=== PATIENT | female | born 1960 | race Caucasian/White ===

== ENCOUNTER → 2019-06-04 | Emergency (ER) | payer BC, SELFPAY | PROVIDERS: Family Provider Nurse Practitioner Family | DX: H57.11 Ocular pain, right eye (principal); Z53.21 Procedure and treatment not carried out due to patient leaving prior to being seen by health care provider | CPT/HCPCS: 99281 ==

== ENCOUNTER 2019-09-06 17:17 | Inpatient (IN) | payer MEDICAID, SELFPAY ==
[2019-09-06] VITALS (7 sets, daily range): BP systolic 123–182; BP diastolic 62–92; PULSE 66–145; RESP 16–22; TEMP 37; O2SAT 89–98; BMI 26.6
--- NOTE | 2019-09-06 17:19 | ED_ITS ---
Entered by Edmund Ayala, acting as scribe for Shiela Treadwell MD Documented by User: Shiela Treadwell MD 09/06/19 17:29 HPI - General Adult General: Chief complaint: Nausea/Vomiting/Diarrhea Stated complaint: N/V/D Time Seen by Provider: 09/06/19 17:25 History of Present Illness: HPI narrative: 58 yo female presents with nausea, vomiting and diarrhea. Pt states that she has bowel incontinence. Pt states that she has chronic diarrhea, but she normally doesn't vomit. Pt states that she feels dehydrated. MD complaint: N/V/D Onset (ago): day(s) (4) Radiation: non-radiation Severity: moderate Quality: aching Pain Consistency: intermittent Relieving factors: none Exacerbating factors: none Associated symptoms: Reports malaise, nausea and vomiting; Deny chest pain, dyspnea, headache(s) or rash Review of Systems Const: Reports: malaise Eyes: Denies: blurry vision or eye discomfort ENMT: Denies: throat pain or dental pain Card: Denies: chest pain Resp: Denies: shortness of breath GI: Reports: abdominal pain, nausea, vomiting and diarrhea : Denies: painful urination Musc: Denies: neck pain or back pain Skin/Breast: Denies: rash Neuro: Denies: headache Psych: Denies: depression Alfonso/Lymph: Denies: easy bruising All/Imm: Denies: hives PFSH ED PFSH: Medical History (Updated 09/06/19 @ 17:28 by Edmund Ayala) Hypertension Psoriatic arthritis Sciatica Surgical History (Updated 09/06/19 @ 17:28 by Edmund Ayala) H/O foot surgery History of cataract surgery History of tubal ligation Social History Smoking and tobacco status: current every day smoker Physical Exam Const: COMMON NORMALS: no apparent distress, oriented x3 and healthy appearing HENMT: COMMON NORMALS: normocephalic and head/scalp atraumatic HEAD & SCALP: normocephalic and atraumatic Eye: COMMON NORMALS: PERRL and EOMs intact bilaterally PUPIL: Yes PERRL Neck/C-Spine: COMMON NORMALS: full ROM and supple Chest: COMMONS NORMALS: inspection of chest normal and palpation of chest n ormal Resp: COMMON NORMALS: normal respiratory effort, no retractions, no use of accessory muscles and clear to auscultation bilaterally AUSCULTATION: clear to auscultation bilaterally Cardio: COMMON NORMALS: regular rate, regular rhythm and no murmurs RATE: regular rate RHYTHM: regular rhythm GI: COMMON NORMALS: soft to palpation and no masses AUSCULTATION: Yes absent bowel sounds PALPATION: Yes soft Extremity: COMMON NORMALS: normal to inspection and full ROM Neuro: COMMON NORMALS: oriented x3, moves all extremities and no focal motor deficits Psych: COMMON NORMALS: mental status grossly normal, thought process normal and cooperative THOUGHT PROCESS: normal thought process Skin: COMMON NORMALS: no rashes or lesions noted and no wounds GENERAL SKIN EXAM: no rashes or lesions noted Course Vital Signs: Vital signs: Vital Signs Temperature 98.6 F 09/06/19 17:20 Pulse Rate 73 09/06/19 19:13 Respiratory Rate 16 09/06/19 19:13 Blood Pressure 154/70 09/06/19 19:13 Pulse Oximetry 91 09/06/19 19:13 [facility] - General Adult Lab Data: Labs: Lab Results 09/06/19 09/06/19 Range/Units 17:57 17:57 WBC 8.9 (4.0-10.0) 10^3/ uL RBC 3.82 L (4.1-5.3) 10^6/u L Hgb 12.5 (11.5-15.3) g/dL Hct 37.7 (37.0-47.0) % MCV 98.7 (81-99) fL MCH 32.7 (28.0-34.0) pg MCHC 33.2 (30.0-36.0) g/dL RDW 14.8 (12.1-15.1) % Plt Count 338 (130-400) 10^3/c mm MPV 8.6 (7.4-10.4) fL Neut % (Auto) 79.0 % Lymph % (Auto) 14.9 % Warrick % (Auto) 5.6 % Eos % (Auto) 0.1 % Baso % (Auto) 0.1 % Neut # (Auto) 7.1 (1.8-7.7) 10^3/u L Lymph # (Auto) 1.3 (0.8-4.8) 10^3/u L Warrick # (Auto) 0.5 (0.2-0.9) 10^3/u L Eos # (Auto) 0.0 (0.0-0.8) 10^3/u L Baso # (Auto) 0.0 (0.0-0.1) 10^3/u L Nucleated RBC % (a uto) 0 % Nucleated RBCs # 0.0 /100WBC Sodium 139 (136-145) mmol/L Potassium 3.2 L (3.5-5.1) mmol/L Chloride 99 (98-107) mmol/L Carbon Dioxide 28 (22-29) mmol/L Anion Gap 15.2 (5-19) BUN 7 (6-20) mg/dL Creatinine 0.5 (0.5-0.9) mg/dL GFR Calculation 126.3 (90-130) mL/min Glucose 118 H (65-115) mg/dL Calcium 9.0 (8.5-10.5) mg/dL Total Bilirubin 0.5 (0.15-1.2) mg/dL AST 69 H (0-32) U/L ALT 63 H (0-33) U/L Alkaline Phosphata se 63 (35-105) IU/L Total Protein 5.9 L (6.6-8.7) g/dL Albumin 3.1 L (3.5-5.2) g/dL Globulin 2.8 (1.3-4.6) g/dL Lipase 20 (13-60) U/L Discharge Plan Discharge Prescriptions: No Action escitalopram oxalate [Lexapro] 20 mg tablet 20 mg PO QDAY RF: 0 trazodone 100 mg tablet 400 mg PO QDAY RF: 0 carvedilol [Coreg] 25 mg tablet 25 mg PO BID RF: 0 methotrexate sodium 10 mg tablet 10 mg PO Q12H RF: 0 Cosentyx Pen 150 mg/mL pen injector 150 mg SUBCUT .Weekly RF: 0 omeprazole 40 mg capsule,delayed release(DR/EC) 40 mg PO BID RF: 0 ondansetron HCl [Zofran] 4 mg tablet 4 mg PO Q8H PRN (Reason: nausea and vomiting) RF: 0 acetaminophen-codeine [Tylenol-Codeine #4] 300-60 mg tablet 1 tab PO .PM RF: 0 ibuprofen 200 mg tablet 800 mg PO .4-5 X Daily RF: 0 Coding Level of Care Code ED Medication Tech for Chg Fwd Exam Comprehensive Documented by User: Nicolas Healy DO 09/06/19 20:46 HPI - General Adult General: Chief complaint: Nausea/Vomiting/Diarrhea Stated complaint: N/V/D Time Seen by Provider: 09/06/19 17:25 PFSH ED PFSH: Medical History (Updated 09/06/19 @ 17:28 by Edmund Ayala) Hypertension Psoriatic arthritis Sciatica Surgical History (Updated 09/06/19 @ 17:28 by Edmund Ayala) H/O foot surgery History of cataract surgery History of tubal ligation Social History Smoking and tobacco status: current every day smoker Course Vital Signs: Vital signs: Vital Signs Temperature 98.6 F 09/06/19 17:20 Pulse Rate 73 09/06/19 19:13 Respiratory Rate 16 09/06/19 19:13 Blood Pressure 154/70 09/06/19 19:13 Pulse Oximetry 91 09/06/19 19:13 MDM - General Adult MDM Narrative: Medical decision making narrative: 58-year-old lady checked out to me by Dr. Wilson. She is experiencing intractable nausea vomiting and diarrhea. No leukocytosis. Her potassium is low. CT shows a early or partial distal small bowel obstruction, with significant enteritis surrounding. She will be observed for fluids, repeat imaging is necessary. Potassium repletion. Lab Data: Labs: Lab Results 09/06/19 09/06/19 Range/Units 17:57 17:57 WBC 8.9 (4.0-10.0) 10^3/ uL RBC 3.82 L (4.1-5.3) 10^6/u L Hgb 12.5 (11.5-15.3) g/dL Hct 37.7 (37.0-47.0) % MCV 98.7 (81-99) fL MCH 32.7 (28.0-34.0) pg MCHC 33.2 (30.0-36.0) g/dL RDW 14.8 (12.1-15.1) % Plt Count 338 (130-400) 10^3/c mm MPV 8.6 (7.4-10.4) fL Neut % (Auto) 79.0 % Lymph % (Auto) 14.9 % Warrick % (Auto) 5.6 % Eos % (Auto) 0.1 % Baso % (Auto) 0.1 % Neut # (Auto) 7.1 (1.8-7.7) 10^3/u L Lymph # (Auto) 1.3 (0.8-4.8) 10^3/u L Warrick # (Auto) 0.5 (0.2-0.9) 10^3/u L Eos # (Auto) 0.0 (0.0-0.8) 10^3/u L Baso # (Auto) 0.0 (0.0-0.1) 10^3/u L Nucleated RBC % (a uto) 0 % Nucleated RBCs # 0.0 /100WBC Sodium 139 (136-145) mmol/L Potassium 3.2 L (3.5-5.1) mmol/L Chloride 99 (98-107) mmol/L Carbon Dioxide 28 (22-29) mmol/L Anion Gap 15.2 (5-19) BUN 7 (6-20) mg/dL Creatinine 0.5 (0.5-0.9) mg/dL GFR Calculation 126.3 (90-130) mL/min Glucose 118 H (65-115) mg/dL Calcium 9.0 (8.5-10.5) mg/dL Total Bilirubin 0.5 (0.15-1.2) mg/dL AST 69 H (0-32) U/L ALT 63 H (0-33) U/L Alkaline Phosphata se 63 (35-105) IU/L Total Protein 5.9 L (6.6-8.7) g/dL Albumin 3.1 L (3.5-5.2) g/dL Globulin 2.8 (1.3-4.6) g/dL Lipase 20 (13-60) U/L Discharge Plan Discharge Prescriptions: No Action escitalopram oxalate [Lexapro] 20 mg tablet 20 mg PO QDAY RF: 0 trazodone 100 mg tablet 400 mg PO QDAY RF: 0 carvedilol [Coreg] 25 mg tablet 25 mg PO BID RF: 0 methotrexate sodium 10 mg tablet 10 mg PO Q12H RF: 0 Cosentyx Pen 150 mg/mL pen injector 150 mg SUBCUT .Weekly RF: 0 omeprazole 40 mg capsule,delayed release(DR/EC) 40 mg PO BID RF: 0 ondansetron HCl [Zofran] 4 mg tablet 4 mg PO Q8H PRN (Reason: nausea and vomiting) RF: 0 acetaminophen-codeine [Tylenol-Codeine #4] 300-60 mg tablet 1 tab PO .PM RF: 0 ibuprofen 200 mg tablet 800 mg PO .4-5 X Daily RF: 0 Coding Level of Care Code ED Medication Tech for Chg Fwd Exam Comprehensive
--- NOTE | 2019-09-06 17:25 | CTR_ITS ---
PROCEDURE INFORMATION: Exam: CT Abdomen And Pelvis With Contrast Exam date and time: 09/06/2019 6:04 PM Age: 58 years old Clinical indication: Nausea and vomiting; Prior surgery; Surgery date: 6+ months; Surgery type: Nerve stimulator; Additional info: Abdominal pain TECHNIQUE: Imaging protocol: Computed tomography of the abdomen and pelvis with intravenous contrast. Total DLP: 880.3 mGy-cm Radiation optimization: All CT scans at this facility use at least one of these dose optimization techniques: automated exposure control; mA and/or kV adjustment per patient size (includes targeted exams where dose is matched to clinical indication); or iterative reconstruction. Contrast material: OMNI 300; Contrast volume: 95 ml; Contrast route: IV; COMPARISON: CR Hip 2-3v LEFT wwo Pelv* [id number] 11/10/2017 12:48 PM FINDINGS: Lungs: There are centrilobular emphysematous changes in the bilateral lungs. There are noncalcified nodular densities at the bilateral lung bases the larger of which measures 6 mm series 2, image 1. This was not seen on the prior CT scan. There are pulmonary parenchymal calcifications consistent with remote granulomatous organism exposure. Pleural space: Small right pleural effusion and trace left pleural effusion. There is adjacent compressive atelectasis or pneumonia. Mediastinum: There is mucosal thickening of the distal esophagus. Liver: See Intraperitoneal Space Finding. Gallbladder and bile ducts: Normal. No calcified stones. No ductal dilation. Pancreas: Normal. No ductal dilation. Spleen: Normal. No splenomegaly. Adrenals: Normal. No mass. Kidneys and ureters: Normal. No hydronephrosis. Stomach and bowel: There are air-fluid levels in mildly dilated small bowel loops. A discrete transition point is not seen however the terminal ileum is of normal caliber. Large and small bowel mucosal thickening with adjacent mesenteric inflammatory stranding. There are air-fluid levels in the distal colon suggesting mild nonspecific colitis versus other diarrheal illness. Appendix: A normal appendix is identified. Intraperitoneal space: There is a small to moderate amount free intraperitoneal fluid in the pelvis. A small amount of fluid surrounds the liver and spleen. Vasculature: Unremarkable. No abdominal aortic aneurysm. Lymph nodes: Unremarkable. No enlarged lymph nodes. Bladder: Unremarkable as visualized. Reproductive: Unremarkable as visualized. Bones/joints: Unremarkable. No acute fracture. Soft tissues: A stimulator device is present in the subcutaneous soft tissues of the right buttock. CT/CT abdomen pelvis w con* [id number] IMPRESSION: 1. Findings as stated above are consistent with a early or partial distal small-bowel obstruction. 2. There is large and small bowel mucosal thickening consistent with nonspecific enteritis. There is adjacent mesenteric stranding and free intraperitoneal fluid. 3. There is mucosal thickening of the distal esophagus consistent with nonspecific esophagitis. 4. Small right pleural effusion and trace left pleural effusion. There is adjacent compressive atelectasis or pneumonia. 5. There are noncalcified nodular densities at the lung bases the larger of which measures 6 mm.For patients at low risk (minimal or absent history of smoking and of other known risk factors), recommend CT at 3-6 months, then consider CT at 18-24 months. For patients at high risk (history of smoking or of other known risk factors), recommend CT at 3-6 months, then CT at 18-24 months. (Lyndsey et al., Fleischner Society, 2017) Radiation Dose CTDIVOL = (mGy): DLP = 880.3 (mGy-cm)
[2019-09-06] MEDS: sodium chloride 0.9% 1,000 ML 999 ML IV (17:54)
[2019-09-06] MEDS: ondansetron 2 mg/ML SDV 2 mL 4 MG IVP ×2 (17:55→22:57)
[2019-09-06] MEDS: iohexol 300 mg/mL 100 mL Btl IV (18:07)
[2019-09-06 18:09] LABS: Basophils % 0.1 %; Eosinophils % 0.1 %; Hematocrit 37.7 % (37.0-47.0); Hemoglobin 12.5 g/dL (11.5-15.3); Lymphocytes # 1.3 10^3/uL (0.8-4.8); Lymphocytes % 14.9 %; Mean Corpuscular HGB Conc 33.2 g/dL (30.0-36.0); Mean Corpuscular Hemoglobin 32.7 pg (28.0-34.0); Mean Corpuscular Volume 98.7 fL (81-99); Mean Platelet Volume 8.6 fL (7.4-10.4); Monocytes # 0.5 10^3/uL (0.2-0.9); Monocytes % 5.6 %; Neutrophils # 7.1 10^3/uL (1.8-7.7); Nucleated Red Blood Cells % 0 %; Platelet Count 338 10^3/cmm (130-400); Red Blood Count 3.82 10^6/uL (4.1-5.3); Red Cell Distribution Width 14.8 % (12.1-15.1); White Blood Count 8.9 10^3/uL (4.0-10.0)
[2019-09-06 18:27] LABS: Alanine Aminotransferase 63 U/L (0-33); Albumin Level 3.1 g/dL (3.5-5.2); Alkaline Phosphatase 63 IU/L (35-105); Anion Gap 15.2 (5-19); Aspartate Amino Transferase 69 U/L (0-32); Blood Urea Nitrogen 7 mg/dL (6-20); Carbon Dioxide 28 mmol/L (22-29); Chloride 99 mmol/L (98-107); Globulin 2.8 g/dL (1.3-4.6); Glomerular Filtration Rate 126.3 mL/min (90-130); Glucose 118 mg/dL (65-115); Lipase 20 U/L (13-60); Potassium 3.2 mmol/L (3.5-5.1); Sodium 139 mmol/L (136-145); Total Bilirubin 0.5 mg/dL (0.15-1.2); Total Protein 5.9 g/dL (6.6-8.7)
[2019-09-06] MEDS: morphine 4 mg/mL SDV 1 mL 2 MG IVP (22:57)
[2019-09-06] MEDS: sodium chloride 0.9% 1,000 ML 125 ML IV (22:58)
[2019-09-06] MEDS: metroNIDAZOLE IV 500 MG/100 ML PREMIX 100 MG IV (22:58)
[2019-09-07] VITALS (8 sets, daily range): BP systolic 125–189; BP diastolic 73–94; PULSE 55–68; RESP 15–19; TEMP 37–37.7; O2SAT 92–95
--- NOTE | 2019-09-07 01:16 | P.HP_ITS ---
Providers/Chief Complaint Admitting Physician: Summer Luciano MD Primary Care Provider: Melba Triplett Chief Complaint: Partial sbo;enteritis History of Present Illness Jennifer Wood is a 58 year old female with a past medical history of hypertension, psoriatic arthritis currently on treatment with secukinumab since 3 years , twice a month with most recent dose earlier in August and weekly methotrexate, sensorimotor neuropathy ( nerve conduction study in April 2019 indicative of profound sensorimotor neuropathy presumably axonal). She presented to the ED this evening complaining of nausea vomiting and multiple episodes of diarrhea. She felt dehydrated and presented to the ER for further evaluation. CT of her abdomen showed partial small bowel obstruction with evidence of enteritis and she is admitted for further care to the medicine service. She states that her diarrhea has been chronic going back at least over a year at this point. She reports these to be at least 5-6 episodes of of loose bowel movements, which range between being soft to completely watery. She has tried Imodium however this has not helped. She was recently on an outpatient course of azithromycin for bronchitis. For work-up of this diarrhea she has previously seen a general surgeon in [place], [place] and has had a colonoscopy in December 2018. This had shown precancerous polyps per her which were removed. She was subsequently referred to a GI surgeon who diagnosed her with some form of neuropathy, however she is unable to tell me details of this diagnosis. Incidentally noted on her CT of the abdomen is a neurostimulator in the buttock area which she says was placed in June 2019 to help with bowel incontinence, however this has not helped. She has also previously also been placed on Linzess which reportedly did not improve her symptoms. She is currently unable to go back for any follow-ups or to get this medication as she has lost insurance as a result of being unemployed for the said illness. She also tells me that at least a year ago her primary care physician had noted findings of partial SBO on a CT and thought this to be the cause of her enteritis. She denies having had abdominal surgeries in the past. While her diarrhea has been an ongoing issue for over a year with no gross change, her new symptoms include multiple episodes of vomiting and intermittent abdominal pain in the epigastric region, somewhat relieved after getting Zofran in the ED. She states having had episodes of dizziness 2 days ago and thought she was dehydrated, eventually presenting to the when she was unable to keep down fluids at home. There is no history of fever. No history of excessive weight loss. No recent changes in her medications. She does not know if on her colon biopsy she was tested for CMV colitis in the past. Incidentally noted on CT of her abdomen are noncalcified nodular densities at the lung bases and bilateral small pleural effusions. These findings were present also on a dedicated CT of the chest from May 2019 and December 2018. There is no past history of TB. 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 She was tested for PPD during her course of employment and has been negative. There is no history of fever. No history of consumption of new outside foods. No sick contacts. no significant travel history Review of Systems General: Reports: 10 or more systems reviewed and unremarkable except in HPI and below Const: Denies: fever, chills or body aches Eyes: Denies: change in vision, blurry vision or photophobia ENMT: Denies: throat pain, enlarged tonsils, painful swallowing, hoarseness or nasal congestion Card: Denies: chest pain, palpitations, irregular heart rhythm, edema, swelling of feet/ankles, lightheadedness, pre-syncope, shortness of breath on exertion or shortness of breath when lying down Resp: Denies: shortness of breath, productive cough, non-productive cough, wheezing, stridor, pain on inspiration, change in phlegm color, coughing up blood or chest congestion GI: Reports: abdominal pain, nausea, vomiting and diarrhea; Denies: vomiting blood, coffee grounds in vomit, difficulty swallowing, heartburn/indigestion, constipation, cramping, change in stool character, blood in stool or black tarry stool : Denies: flank pain, difficulty urinating, painful urination, urinary frequency, urinary urgency, urinary hesitancy or blood in urine Musc: Denies: neck pain, back pain, extremity pain, joint swelling, joint warmth or deformity Neuro: Denies: headache, numbness in extremities, weakness in extremities, changes in sensation, difficulty walking, frequent falls, dizziness, vertigo, behavioral changes, slurred speech or seizure-like activity Psych: Denies: anxiety, depression, suicidal ideation or homicidal ideation Endo: Denies: excessive urination, excessive thirst, tired all the time, cold intolerance or hot flashes Alfonso/Lymph: Denies: easy bruising or easy bleeding Medications/Allergies Home Medications Medication Instructions Recorded Confirmed Last Taken Type folic acid 1 mg PO DAILY 09/07/19 09/07/19 Unknown History ondansetron HCl 4 mg PO Q4-5H PRN 09/07/19 09/07/19 Unknown History Allergies Allergy/AdvReac Type Severity Reaction Status Date / Time Penicillins Allergy Unknown Verified 07/31/19 15:04 Sulfa (Sulfonamide Allergy Unknown Verified 07/31/19 15:04 Antibiotics) PFSH Acute PFSH: Medical History (Updated 09/07/19 @ 03:49 by Summer Luciano MD) Chronic diarrhea Enteritis Hypertension Lumbar spinal stenosis Psoriatic arthritis Sciatica Sensorimotor neuropathy Small bowel obstruction, partial Surgical History H/O foot surgery History of cataract surgery History of tubal ligation Social History Smoking and tobacco status: current every day smoker Vitals/I&O/Wt Last Vital Signs Temp 99.8 F H 09/07/19 00:00 Pulse 66 09/07/19 00:00 Resp 17 09/07/19 00:00 BP 165/89 09/07/19 00:00 Pulse Ox 92 09/07/19 00:00 Weight last 48 hrs Weight 79.379 kg Physical Exam Narrative: EXAM NARRATIVE: GEN: Awake, alert and oriented, appears older than stated age , in mild distress after having just vomited and complaining of some abdominal cramps. Mild dehydration+. CVS: S1S2 N RS: CTA B/L Abd: Soft, nt/nd , bs+ RECORDS MANAGEMENT COORDINATOR: no focal neuro deficits Data : 09/06/19 17:57 09/06/19 17:57 A&P Assessment and plan (1) Chronic diarrhea: Status: Acute Code(s): K52.9 - Noninfective gastroenteritis and colitis, unspecified (2) Enteritis: Status: Acute Code(s): K52.9 - Noninfective gastroenteritis and colitis, unspecified (3) Hypokalemia: Status: Acute Code(s): E87.6 - Hypokalemia (4) Small bowel obstruction, partial: Status: Acute Code(s): K56.600 - Partial intestinal obstruction, unspecified as to cause (5) Dehydration: Status: Acute Code(s): E86.0 - Dehydration (6) Lumbar spinal stenosis: Status: Acute Code(s): M48.061 - Spinal stenosis, lumbar region without neurogenic claudication Additional A&P Information Admit to med/surg in view of ongoing GI losses and resulting dehydration , need fro IVF #1: Partial SBO Bowel rest, keep NPO for now Holding off on NGT as symptoms improving with prn zofran Imodium for diarrhea if Cdiff PCR returns negative #2: Enteritis and colitis of unclear chronicity Patient reports having ongoing diarrhea for over a year now, previously worked up with colonoscopy as an outpatient. Per her, she is only aware of polyps being found, but is unable to tell me if any other biopsies or tests were performed. Results of this testing are N/A for review at this time. She is currently on an IL-17 inhibitor biological agent which per review of literature may be associated with either flare of pre existing IBD/ulcerative colitis or result in new onset IBD. Additionally, TB reactivation may also be associated with its use. Other differentials include CMV and adenovirus colitis in this setting. It is also possible that some element of acute viral enteritis on top of her chronic diarrhea may be the cause of worsened symptoms at this present time. Hold off on abx at this time unless develops high grade fever, worsening symptoms or hemodynamic instability Will obtain Stool studies incl C.diff PCR, enteric bacterial and parasite panel, lactoferrin, Stool AFB smear. Other studies : HIV screening, hepatitis screen, CMV serology, CMV PCR. If not already evaluated, will benefit from colonoscopy and UGIE with tissue biopsy studies for IBD, CMV and Adenovirus stains and mycobacterial culture. Quantiferon will not be useful to screen as difficult to interpret in a patient on biological agents. #3: Hypokalemia Supplemented with 40meq KCL. Repeat with am labs #4: psoriatic arthritis : need to confirm home dose of Methotrexate prior to resuming #5: HTN: continue carvediolol when able to tolerate po intake DVT ppx: lovenox Full code Attestations Medical Necessity Statement*: Anticipate > 2MN for ongoing GI losses, dehydration and need for IV fluids Coding Level of Care Code Acute Reservoir Engineering Manager for Chg Fwd Diagnoses Chronic diarrhea K52.9 Enteritis K52.9 Hypokalemia E87.6 Small bowel obstruction, partial K56.600 Dehydration E86.0 Lumbar spinal stenosis M48.061
[2019-09-07] MEDS: enoxaparin 30 mg/0.3 mL Syringe SUBCUT (01:57)
[2019-09-07] MEDS: dextrose 5%-sod chloride 0.9% 1,000 ML 125 ML IV ×2 (01:57→17:37)
[2019-09-07] MEDS: ketorolac 30 mg/mL INJ IVP ×3 (02:01→20:17)
[2019-09-07] MEDS: acetaminophen 325 mg Tablet 650 MG PO ×3 (02:01→20:17)
[2019-09-07] MEDS: ondansetron 2 mg/ML SDV 2 mL 4 MG IVP ×4 (05:33→23:01)
[2019-09-07] MEDS: morphine 4 mg/mL SDV 1 mL 2 MG IVP ×2 (05:33→17:39)
[2019-09-07 06:15] LABS: Basophils % 0.1 %; Eosinophils # 0.1 10^3/uL (0.0-0.8); Eosinophils % 0.6 %; Hemoglobin 11.9 g/dL (11.5-15.3); Lymphocytes # 1.5 10^3/uL (0.8-4.8); Mean Corpuscular HGB Conc 33.1 g/dL (30.0-36.0); Mean Corpuscular Hemoglobin 32.9 pg (28.0-34.0); Mean Corpuscular Volume 99.4 fL (81-99); Monocytes # 0.6 10^3/uL (0.2-0.9); Monocytes % 6.9 %; Nucleated Red Blood Cells % 0 %; Platelet Count 339 10^3/cmm (130-400); Red Blood Count 3.62 10^6/uL (4.1-5.3); White Blood Count 8.1 10^3/uL (4.0-10.0)
[2019-09-07 06:24] LABS: Alanine Aminotransferase 54 U/L (0-33); Albumin Level 2.9 g/dL (3.5-5.2); Alkaline Phosphatase 57 IU/L (35-105); Anion Gap 15.3 (5-19); Aspartate Amino Transferase 53 U/L (0-32); Blood Urea Nitrogen 6 mg/dL (6-20); Calcium 8.3 mg/dL (8.5-10.5); Carbon Dioxide 25 mmol/L (22-29); Chloride 105 mmol/L (98-107); Globulin 2.5 g/dL (1.3-4.6); Glomerular Filtration Rate 126.3 mL/min (90-130); Glucose 122 mg/dL (65-115); Potassium 3.3 mmol/L (3.5-5.1); Sodium 142 mmol/L (136-145); Total Bilirubin 0.4 mg/dL (0.15-1.2); Total Protein 5.4 g/dL (6.6-8.7)
[2019-09-07 06:31] LABS: Thyroid Stimulating Hormone 1.76 uIU/mL (0.27-4.20)
[2019-09-07 06:44] LABS: Hepatitis A Antibody IgM. Non-Reactive (Nonreactive); Hepatitis B Surface Antigen. Non-Reactive (Nonreactive); Hepatitis C Virus Antibody Non-Reactive (Nonreactive)
[2019-09-07 06:47] LABS: Hepatitis B Surface AB. < 3.5 (0-8.5)
--- NOTE | 2019-09-07 07:00 | CT_ITS ---
WS: [id number] CT CHEST TECHNIQUE: Noncontrast CT of the chest with coronal and sagittal reformatted images. CLINICAL INFORMATION: B/L infiltrates noted on Ct abdomen COMPARISON: CT June 10, 2019 DLP: 718.[address] scans at [facility] use at least one of these dose optimization techniques: automat ed exposure control; mA and/or kV adjustment per patient size (includes targeted exams where dose is matched to clinical indication); or iterative reconstruction. FINDINGS: Advanced chronic emphysematous changes. Small right greater than left pleural effusions. Patchy infil trates in the lung bases. Small subpleural pulmonary nodules in the right lower lobe medially appears unchanged since 2019. The largest measures 6 mm. Patchy nodular infiltrates within the right middle lobe. Aortic calcification. No mediastinal or hilar lymphadenopathy. No axillary lymphadenopathy. Small left adrenal adenoma. Normal GE junction. CT/CT chest wo con [id number] IMPRESSION: 1. Advanced chronic emphysematous changes. 2. Small bilateral pleural effusions with patchy infiltrates in the lung bases . 3. Noncalcified pulmonary nodules in the right lower lobe medially largest loren suring 6 mm. Recommend 6 month follow-up. 4. Additional fibrotic appearing nodular infiltrates in the right middle lobe. 5. No mediastinal or hilar lymphadenopathy. 6. Stable small left adrenal adenoma.
--- NOTE | 2019-09-07 07:00 | XRR_ITS ---
PROCEDURE INFORMATION: Exam: XR Chest, 1 View Exam date and time: 09/07/2019 6:35 AM Age: 58 years old Clinical indication: Condition or disease; Lung condition and disease; Pneumonia; Other: Not specified TECHNIQUE: Imaging protocol: XR of the chest Views: Frontal portable upright view of the chest. COMPARISON: CR Chest 2 views* [id number] 11/18/2018 10:52 AM FINDINGS: Lungs: The pulmonary vasculature is congested. Mild RIGHT basilar pulmonary subsegmental atelectasis. Mild LEFT lateral basilar subsegmental atelectasis. Mild prominence of interstitial markings is noted in the mid to lower lung zones. Pleural space: No definite pleural effusion. No pneumothorax. Heart/Mediastinum: Mild cardiomegaly. Mediastinum: Stable. Vasculature: Mild aortic arch atherosclerotic calcification without ectasia. Bones/joints: Stable. XR/XR chest 1V portable [id number] IMPRESSION: 1. Pulmonary vascular congestion. 2. Mild RIGHT basilar pulmonary subsegmental atelectasis. 3. Mild LEFT lateral basilar subsegmental atelectasis. 4. Possible interstitial pulmonary edema. Viral pneumonitis also difficult to exclude. Clinical correlation is recommended.
[2019-09-07 07:20] LABS: HIV 1 & 2 Antibody Non-Reactive (Non-Reactiv); HIV 1 & 2 Antigen Non-Reactive (Non-Reactiv)
[2019-09-07] MEDS: escitalopram 10 mg Tablet 20 MG PO (08:21)
[2019-09-07] MEDS: folic acid 1 mg Tablet PO (08:22)
[2019-09-07] MEDS: pantoprazole DR 40 mg Tablet PO (08:22)
[2019-09-07] MEDS: carvedilol 25 mg Tablet PO ×2 (08:22→17:43)
--- NOTE | 2019-09-07 11:08 | PC.CHAP ---
Pastoral Care Encounter/Spiritual Assessment Type of Contact [x] Declined program and research coordinator visit [] Patient/Family/Request visit [] Outpatient visit [] Follow-up visit [] Physician referral [] Code/Alert [] Routine visit [] Staff referral [] Actively dying [] Patient sleeping [] Family support [] [] Out of room [] Palliative care [] [] Receiving care in room [] Pre-surgical visit [] Trauma [] Long length of stay [] ICU visit [x] Other: Pt might accept program and research coordinator visit later but not today, Saturday09/07/2019 Relational/Emotional Strength [] Patient feels connected with others/family/visitors/staff [] Distress [] Loneliness/isolation [] Abandonment Spirituality of Patient [] Person of Connie [] Attends Orthodox of their Connie [] Believes in Prayer [] Reads Bible or Taoist materials [] There are Spiritual issues to be addressed Nuclear Technician Interventions [] Prayer [] Active listening [] Non-anxious presence [] Spiritual/emotional support [] Crisis/trauma care [] Spiritual counseling [] Bereavement support [] Provided bereavement packet [] Provided Bible/devotional materials [] Provided toy/stuffed animal, coloring book to patient or family member [] Provided Communion [] Anointing/[place] [] Salvation [] Completed spiritual assessment [] Other: Impact on Illness or Injury [] Angry [] Fearful [] Anxious [] Often cries [] Exhaustion [] Unable to work [] Unable to attend evangelical [] Unable to walk/stand [] Unable to read [] Unable to drive [] Unable to eat/drink [] Unable to sleep [] Unable to be with family [] Patient intubated [] Other: Summary Follow up Pt did not want to be bothered by any one including program and research coordinator. Pt state she does not feel good at all and does not want visitors or any unnecessary interruptions. Nuclear Technician Becky Gamez Time spent with patient 4 minutes
--- NOTE | 2019-09-07 12:47 | PC.RESP ---
Patient given Pulmonary Rehab information.
--- NOTE | 2019-09-07 15:10 | PC.NURSE ---
CALLED [facility] OFFICE AND REQUESTED UP TO DATE MED LIST FOR PATIENT. FAX NUMBER PROVIDED.
--- NOTE | 2019-09-07 15:30 | PM.PN ---
Subjective Subjective: Interval history: Admitted overnight. H&P and labs noted. On evaluation today morning patient is complaining of left flank pain which she said she hurt when she fell. She states she has had 2 episodes of diarrhea. She is asking for stronger pain medications. Denies of having any headache, abdominal pain at present. Is not nauseous has not had any further vomiting. Vitals/I&O/Wt Last Vital Signs Temp 98.9 F 09/07/19 12:00 Pulse 61 09/07/19 12:00 Resp 16 09/07/19 12:00 BP 182/94 09/07/19 12:00 Pulse Ox 94 09/07/19 12:00 09/07/19 09/07/19 09/07/19 06:59 14:59 22:59 Intake Total 502.917 / 502.917 240 / 240 Output Total 250 / 250 400 / 400 Balance 252.917 / 252.917 -160 / -160 Weight last 48 hrs Weight 79.379 kg Physical Exam Narrative: EXAM NARRATIVE: General: No acute distress, AO x3, dehydrated HEENT: PERRLA, pupils bilaterally equal and reactive Chest: Normal vesicular breath sounds, no added sounds, equal good air entry bilaterally CVS: S1-S2 regular, no murmurs, no tachycardia, no gallops, no rubs Abdomen: Soft, nontender, no organomegaly, bowel sounds present Neuro: No focal deficits, no facial deformity, AO x3, power 5/5 in all limbs Data : 09/07/19 05:27 09/07/19 05:27 Micro: Microbiology 09/07/19 09:35 Stool Lactoferrin - Final Stool C.difficile Toxin B Gene (PCR) - Final A&P Assessment and plan (1) Chronic diarrhea: Status: Acute Code(s): K52.9 - Noninfective gastroenteritis and colitis, unspecified (2) Enteritis: Status: Acute Code(s): K52.9 - Noninfective gastroenteritis and colitis, unspecified (3) Hypokalemia: Status: Acute Code(s): E87.6 - Hypokalemia (4) Small bowel obstruction, partial: Status: Acute Code(s): K56.600 - Partial intestinal obstruction, unspecified as to cause (5) Dehydration: Status: Acute Code(s): E86.0 - Dehydration (6) Lumbar spinal stenosis: Status: Acute Code(s): M48.061 - Spinal stenosis, lumbar region without neurogenic claudication Additional A&P Information Partial SBO Advance diet to full liquid diet and see how she does. Zofran for vomiting/nausea. Enteritis and colitis of unclear chronicity: Infectious causes negative. Patient reports having ongoing diarrhea for over a year now, previously worked up with colonoscopy as an outpatient. Per her, she is only aware of polyps being found, but is unable to tell me if any other biopsies or tests were performed. Results of this testing are N/A for review at this time. She is currently on an IL-17 inhibitor biological agent which per review of literature may be associated with either flare of pre existing IBD/ulcerative colitis or result in new onset IBD. Additionally, TB reactivation may also be associated with its use. Other differentials include CMV and adenovirus colitis in this setting. It is also possible that some element of acute viral enteritis on top of her chronic diarrhea may be the cause of worsened symptoms at this present time. Hold off on abx at this time unless develops high grade fever, worsening symptoms or hemodynamic instability Stool studies including C. difficile, enteric panel, lactoferrin, stool for occult blood negative. Hepatitis and HIV screen negative. Patient will most likely need a repeat colonoscopy as an outpatient once acute flareup of enteritis is cleared to rule out irritable bowel disease, inflammatory bowel disease associated with IL 7 inhibitor. Continue Toradol and morphine as needed for pain. We will also add tramadol as patient is requesting more pain medication. Did tell patient that patient should will not be getting any opiates as that would cause her to have worsening SBO. Hypokalemia Supplemented with 40meq KCL. 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
[2019-09-07] MEDS: TRAMadol 50 mg Tablet PO ×2 (15:54→23:01)
[2019-09-07] MEDS: trazodone 100 mg Tablet 400 MG PO (20:17)
[2019-09-08] VITALS (8 sets, daily range): BP systolic 131–174; BP diastolic 77–90; PULSE 19–60; RESP 17–59; TEMP 36.9–37.1; O2SAT 91–96
[2019-09-08] MEDS: dextrose 5%-sod chloride 0.9% 1,000 ML 125 ML IV ×2 (01:57→09:14)
[2019-09-08] MEDS: ondansetron 2 mg/ML SDV 2 mL 4 MG IVP (04:44)
[2019-09-08] MEDS: morphine 4 mg/mL SDV 1 mL 2 MG IVP ×2 (04:45→15:40)
[2019-09-08 04:49] LABS: Basophils % 0.3 %; Eosinophils # 0.2 10^3/uL (0.0-0.8); Eosinophils % 2.9 %; Hematocrit 31.2 % (37.0-47.0); Hemoglobin 10.4 g/dL (11.5-15.3); Lymphocytes # 1.7 10^3/uL (0.8-4.8); Lymphocytes % 23.2 %; Mean Corpuscular HGB Conc 33.3 g/dL (30.0-36.0); Mean Corpuscular Hemoglobin 33.2 pg (28.0-34.0); Mean Corpuscular Volume 99.7 fL (81-99); Mean Platelet Volume 8.9 fL (7.4-10.4); Monocytes # 0.6 10^3/uL (0.2-0.9); Monocytes % 8.7 %; Neutrophils # 4.6 10^3/uL (1.8-7.7); Neutrophils % 64.6 %; Nucleated Red Blood Cells % 0 %; Platelet Count 285 10^3/cmm (130-400); Red Blood Count 3.13 10^6/uL (4.1-5.3); Red Cell Distribution Width 14.6 % (12.1-15.1); White Blood Count 7.1 10^3/uL (4.0-10.0)
[2019-09-08 05:13] LABS: Alanine Aminotransferase 40 U/L (0-33); Albumin Level 2.9 g/dL (3.5-5.2); Alkaline Phosphatase 51 IU/L (35-105); Anion Gap 12.9 (5-19); Aspartate Amino Transferase 31 U/L (0-32); Blood Urea Nitrogen 5 mg/dL (6-20); Calcium 8.1 mg/dL (8.5-10.5); Carbon Dioxide 27 mmol/L (22-29); Chloride 103 mmol/L (98-107); Globulin 2.2 g/dL (1.3-4.6); Glomerular Filtration Rate 126.3 mL/min (90-130); Glucose 104 mg/dL (65-115); Potassium 2.9 mmol/L (3.5-5.1); Sodium 140 mmol/L (136-145); Total Bilirubin 0.4 mg/dL (0.15-1.2); Total Protein 5.1 g/dL (6.6-8.7)
[2019-09-08] MEDS: escitalopram 10 mg Tablet 20 MG PO (09:13)
[2019-09-08] MEDS: carvedilol 25 mg Tablet PO (09:13)
[2019-09-08] MEDS: pantoprazole DR 40 mg Tablet PO (09:13)
[2019-09-08] MEDS: enoxaparin 40 mg/0.4 mL Syringe SUBCUT (09:13)
[2019-09-08] MEDS: folic acid 1 mg Tablet PO (09:13)
[2019-09-08] MEDS: TRAMadol 50 mg Tablet PO ×2 (09:13→16:58)
[2019-09-08] MEDS: potassium chloride premix 40 MEQ/100 ML PREMIX 25 MEQ IV (12:45)
[2019-09-08] MEDS: ketorolac 30 mg/mL INJ IVP (12:45)
[2019-09-08] MEDS: lidocaine 1% INJ 20 mL 5 ML IV (12:46)
[2019-09-08 12:50] LABS: Erythrocyte Sedimentation Rate 20 mm/hr (0-15)
[2019-09-08 14:26] LABS: Cytomegalovirus Antibody (IGG) <0.60 U/mL; Cytomegalovirus Antibody (IGM) <30.00 AU/mL
--- NOTE | 2019-09-08 15:23 | PC.OT ---
OT NOTE: PATIENT SCHEDULED FOR DISCHARGE. THEREFORE, WILL NOT ATTEMPT THERAPY TODAY.
--- NOTE | 2019-09-08 20:28 | PM.DCS ---
Discharge Providers Date of Admission: 09/06/19 22:08 Date of Discharge: September 08, 2019 Attending Provider at Admission: Summer Luciano MD Attending Provider at Discharge: Eugenio aHrkins MD Primary Care Provider: Melba Triplett Diagnoses at Discharge Discharge Diagnosis (1) Chronic diarrhea: Status: Acute (2) Enteritis: Status: Acute (3) Hypokalemia: Status: Acute (4) Small bowel obstruction, partial: Status: Acute (5) Dehydration: Status: Acute (6) Lumbar spinal stenosis: Status: Acute Reason for Visit Reason for Visit: Reason For Visit: Partial sbo;enteritis Hospital Course Discharge Summary: This is a 58-year-old female with a past medical history of psoriatic arthritis on methotrexate and secukinumab, history of stool incontinence status implant pacemaker for bowel incontinence, hypertension, chronic diarrhea who presents to the emergency room due to concerns for worsening of acute on chronic diarrhea, hypokalemia, concerns for dehydration. Patient was admitted for partial small bowel obstruction with enteritis and colitis of unclear chronicity. Patient continued to have watery bowel movements throughout her admission, which were at baseline, her electrolytes were replaced, she received IV hydration, patient clinically improved, she had minimal abdominal pain, her stool studies were unremarkable, her HIV and hepatitis screen was unremarkable. Her CMV panel and celiac panel is pending. Patient is to follow-up with her GI specialist in [place] for consideration for repeat colonoscopy as there is a possibility that she could have a flareup of inflammatory bowel disease given that she is on IL-17 inhibitor. Physical Exam Const: COMMON NORMALS: no apparent distress and oriented x3 HENMT: COMMON NORMALS: normocephalic HEAD & SCALP: normocephalic Neck/C-Spine: COMMON NORMALS: no JVD Resp: COMMON NORMALS: normal respiratory effort, no retractions, no use of accessory muscles and clear to auscultation bilaterally AUSCULTATION: clear to auscultation bilaterally Cardio: COMMON NORMALS: no JVD, regular rate, regular rhythm, S1 normal heart sound and S2 normal heart sound RATE: regular rate RHYTHM: regular rhythm HEART SOUNDS: S1 normal and S2 normal GI: COMMON NORMALS: normal to inspection, nondistended, normoactive bowel sounds, soft to palpation, non-tender, no hepatosplenomegaly, no masses and no bruits PALPATION: Yes soft and Yes no hepatosplenomegaly Extremity: COMMON NORMALS: normal capillary refill, no clubbing, cyanosis or edema, no calf tenderness and no pedal edema Neuro: COMMON NORMALS: oriented x3 Psych: COMMON NORMALS: mental status grossly normal Discharge Data Data Completed and Pending: Completed Studies During Hospitalization Category Date Time Status CT abdomen pelvis w con* [id number] Urge nt Cat Scan 09/06/19 17:[address] chest wo con 7 1250 Routine Cat Scan 09/07/19 07:00 Completed XR chest 1V janeth ble [id number] Routine Exams 09/07/19 07:00 Completed Pending at discharge Category Date Time Status Blood Culture AM LABS Lab 09/08/19 04:15 Results CMV IGG&IGM Panel Routine Lab 09/07/19 05:27 Results CYTOMEGALOVIRUS D NA, QN, REAL Routi ne Lab 09/07/19 05:27 Results Celiac Disease Di agniostic [place] Stat Lab 09/08/19 11:57 Received Labs from last 24 hours 09/08/19 09/08/19 09/08/19 11:57 11:57 04:11 WBC RBC Hgb Hct MCV MCH MCHC RDW Plt Count MPV Neut % (Auto) Lymph % (Auto) Trinity % (Auto) Eos % (Auto) Baso % (Auto) Neut # (Auto) Lymph # (Auto) Trinity # (Auto) Eos # (Auto) Baso # (Auto) Nucleated RBC % (a uto) Nucleated RBCs # ESR 20 H Sodium 140 Potassium 2.9 L Chloride 103 Carbon Dioxide 27 Anion Gap 12.9 BUN 5 L Creatinine 0.5 GFR Calculation 126.3 Glucose 104 Calcium 8.1 L Total Bilirubin 0.4 AST 31 ALT 40 H Alkaline Phosphata se 51 C-Reactive Protein 5.0 H Total Protein 5.1 L Albumin 2.9 L Globulin 2.2 CMV IgG Ab CMV IgM Ab 09/08/19 09/07/19 04:11 05:27 WBC 7.1 RBC 3.13 L Hgb 10.4 L Hct 31.2 L MCV 99.7 H MCH 33.2 MCHC 33.3 RDW 14.6 Plt Count 285 MPV 8.9 Neut % (Auto) 64.6 Lymph % (Auto) 23.2 Trinity % (Auto) 8.7 Eos % (Auto) 2.9 Baso % (Auto) 0.3 Neut # (Auto) 4.6 Lymph # (Auto) 1.7 Trinity # (Auto) 0.6 Eos # (Auto) 0.2 Baso # (Auto) 0.0 Nucleated RBC % (a uto) 0 Nucleated RBCs # 0.0 ESR Sodium Potassium Chloride Carbon Dioxide Anion Gap BUN Creatinine GFR Calculation Glucose Calcium Total Bilirubin AST ALT Alkaline Phosphata se C-Reactive Protein Total Protein Albumin Globulin CMV IgG Ab <0.60 CMV IgM Ab <30.00 Vitals: Last Vital Signs Temp 98.8 F 09/08/19 14:56 Pulse 57 L 09/08/19 14:56 Resp 18 09/08/19 15:40 BP 157/78 09/08/19 14:56 Pulse Ox 96 09/08/19 14:56 Discharge Plan Discharge Patient Disposition: Home, Self-Care Condition: Stable Prescriptions: Continued escitalopram oxalate [Lexapro] 20 mg tablet 20 mg PO QDAY RF: 0 trazodone 100 mg tablet 400 mg PO QPM RF: 0 carvedilol [Coreg] 25 mg tablet 25 mg PO BID RF: 0 omeprazole 40 mg capsule,delayed release(DR/EC) 40 mg PO BID RF: 0 acetaminophen-codeine [Tylenol-Codeine #4] 300-60 mg tablet 1 tab PO .PM RF: 0 ibuprofen 200 mg tablet 800 mg PO .4-5 X Daily RF: 0 ondansetron HCl 4 mg tablet 4 mg PO Q4-5H PRN (Reason: Nausea And Vomiting) RF: 0 folic acid 1 mg Tablet 1 mg PO DAILY RF: 0 Held methotrexate sodium 10 mg tablet 10 mg PO Q12H RF: 0 Hold Instructions: Resume on 10/13/19. Until seen by primary care Cosentyx Pen 150 mg/mL pen injector 150 mg SUBCUT .Weekly RF: 0 Hold Instructions: Resume on 10/13/19. Hold until seen by rheumatology Discharge Orders: Discharge Order (Routine); Ordered 09/08/19 Ordered By: Eugenio Harkins Referrals: Melba Triplett [Primary Care Provider] - 09/15/19 11:00 am Discharge Diet: GI Soft Discharge Activity: Resume usual activity Patient Instructions: Dehydration - Adult, Dehydration (DC), Hypokalemia (DC), Bowel Obstruction (DC) Activity Restrictions/Additional Instructions: -Please follow-up with your grocery clerk stocking for colonoscopy -Follow-up with your cold working inspector in 1 week -Please follow-up with primary care in 1 week -Drink plenty of electrolyte balance fluids -If you have worsening lightheadedness, dizziness, nausea, vomiting, abdominal pain, diarrhea please come back to emergency room -Some of your lab work is pending, please follow-up with a primary care for results -Hold Cosentyx and methotrexate until seen by rheumatology Discharge Date/Time: 09/08/19 17:32 Discharge Attestations Time Spent in Discharge Care*: less than 30 min Quality Metrics Clinical Quality Measures During this hospital stay, did patient experience: None Coding Level of Care Code Acute 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
[2019-09-09 17:45] LABS: CMV DNA By PCR <200 IU/mL; CMV DNA, QN PCR <2.30 Log IU/mL; SOURCE NOT GIVEN
[2019-09-10 23:02] LABS: Tissue Transglutaminase IgA Ab <1 U/mL; Tissue transglutaminase Ab.IgG <1 U/mL
[2019-09-11 19:10] LABS: Gliadin Ab.IgA 4 U (<20); Gliadin Ab.IgG 2 U (<20)
[2019-09-12 00:36] LABS: Immunoglobulin A 234 mg/dL (47-310)
== END 2019-09-08 17:32 | disposition home or self-care (01) | DRG 392 ==
LOC: ER 22:19 → MEDSURG 22:28 → CSU 09-07 08:29 → MEDSURG 09-07 08:33
PROVIDERS: Emergency Medicine; Admitting Provider Student in an Organized Health Care Education/Training Program; Emergency Provider Emergency Medicine; Family Provider Nurse Practitioner Family; PCP Nurse Practitioner Family; Visit Provider Family Medicine
DX: K52.9 Noninfective gastroenteritis and colitis, unspecified (principal); K56.600 Partial intestinal obstruction, unspecified as to cause; I10 Essential (primary) hypertension; L40.50 Arthropathic psoriasis, unspecified; Z79.899 Other long term (current) drug therapy; Z88.0 Allergy status to penicillin; Z88.1 Allergy status to other antibiotic agents; E87.6 Hypokalemia; E86.0 Dehydration; M48.061 Spinal stenosis, lumbar region without neurogenic claudication
CPT/HCPCS: 12345; 36415; 71045; 71250; 74177; 80053; 82784; 83516; 83630; 83690; 84443; 85025; 85651; 86140; 86705; 86706; 86709; 86803; 87040; 87340; 87493; 87505; 87806; 96361; 96372; 96374; 96375; 97161; 97165; 99283; 99285; J1650; J1885; J2001; J2270; J2405; J3480; J7030; Q9967; S0030

== ENCOUNTER 2019-12-11 09:06 | Day surgery (SDC) | payer MEDICAID, SELFPAY ==
[2019-12-11 09:18] VITALS: BMI 25.8
[2019-12-11 09:25] VITALS: BP 140/95; PULSE 96; RESP 18; TEMP 36.9; O2SAT 96
--- NOTE | 2019-12-11 09:32 | P.HP_ITS ---
Same Day Surgery H&P Indication for Procedure/HPI DATE OF PROCEDURE: December 11, 2019 CHIEF COMPLAINT/INDICATIONFOR SURGICAL PROCEDURE: Chronic diarrhea and a history of colon polyps PREOP DIAGNOSIS: h PLANNED PROCEDRUE: Operation Date: 12/11/19 10:35 Proposed Procedures p EGD/COLON 10165 18618 K52.9 K52.9(Not Applicable) - Michael Fonseca MD s Colonoscopy(Not Applicable) - Michael Fonseca MD Medications/Allergies* Home Medications Medication Instructions Recorded Confirmed Type carvedilol 25 mg tablet 25 mg PO BID 07/31/19 12/11/19 History secukinumab 150 mg/mL subcutaneous See Rx Instructions .ROUTE 07/31/19 12/11/19 History pen injector .COMPLEX ml folic acid 1 mg PO DAILY 09/07/19 12/11/19 History ondansetron HCl 4 mg PO Q4-5H PRN 09/07/19 12/11/19 History omeprazole 40 mg capsule,delayed 40 mg PO BID cap 10/02/19 12/11/19 History release acetaminophen-codeine 1 tab PO Q4H PRN 11/26/19 12/11/19 History gabapentin 800 mg PO TID 11/26/19 12/11/19 History meloxicam 15 mg PO DAILY PRN 11/26/19 12/11/19 History methotrexate sodium 25 mg PO Q7D 11/26/19 12/11/19 History temazepam 30 mg PO BEDTIME 11/26/19 12/11/19 History tramadol 50 mg PO QID PRN 11/26/19 12/11/19 History trazodone 500 mg PO BEDTIME 11/26/19 12/11/19 History Allergies/Adverse Reactions Allergy/AdvReac Type Severity Reaction Status Date / Time Penicillins AdvReac Hives Verified 11/26/19 09:42 Sulfa (Sulfonamide AdvReac Hives Verified 11/26/19 09:42 Antibiotics) Pertinent History/Comorbid Conditions* Medical History (Updated 10/19/19 @ 14:39 by Michael Fonseca MD) Chronic diarrhea Hypertension Lumbar spinal stenosis Psoriatic arthritis Sciatica Sensorimotor neuropathy Surgical History (Updated 09/06/19 @ 17:28 by Edmund Ayala) H/O foot surgery History of cataract surgery History of tubal ligation Family History (Updated 10/19/19 @ 14:34 by Meggan Estrada LPN) Lung disease Hypertension Denies family history of Diabetes Dementia Hyperlipidemia Cancer Social History Smoking and tobacco status: current every day smoker Alcohol intake: never Marital status: Current occupational status: disabled Pertinent Exam Findings alert, oriented x 3, clear to auscultation bilaterally, regular rate & rhythm, operative site marked and procedure specific exam findings Recommendations Surgery/Procedure today Coding Level of Care Code 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
--- NOTE | 2019-12-11 09:38 | ANES.PREANE2 ---
Pre-Anesthetic Assessment Pre-Anesthetic Assessment: Height/Weight: Height 1.73 m Weight 77.111 kg Temp Pulse Resp BP Pulse Ox 98.4 F 96 18 140/95 96 12/11/19 09:25 12/11/19 09:25 12/11/19 09:25 12/11/19 09:25 12/11/19 09:25 Preop Diagnosis: h Proposed Procedure: Operation Date: 12/11/19 10:35 Proposed Procedures p EGD/COLON 03861 [id number] K52.9 K52.9(Not Applicable) - Michael Fonseca MD s Colonoscopy(Not Applicable) - Michael Fonseca MD Last intake: Intake Last Liquid Date 12/10/19 Last Liquid Time 21:00 Last Solid Date 12/09/19 Social: Social History: Tobacco and No alcohol Exam: Pre-Anes Outpt Exam: alert, oriented x 3, clear to auscultation bilaterally and regular rate & rhythm Airway: Submandibular: WNL Cervical ROM: WNL MP: 2 Dentition: False (upper and lower) History/ROS: No significant history except as noted Pulmonary: Pulmonary: COPD, [place] R[place] and Sleep apnea CV/HEM: CV/HEM: HTN : : None reported Hepatic: Hepatic: None reported GI: GI: GERD Metabolic: Metabolic: None reported Musc/skel: Musc/skel: OA/DJD Neuropsych: Neuropsych: Neuropathy (feet) Anesthetic Plan: ASA status: 3 Anesthesia: Anesthesia Evaluation and MAC Risk of > 500 ml blood loss (7ml/kg in children): No PFSH Anesthesia PFSH: Medical History Chronic diarrhea Hypertension Lumbar spinal stenosis Psoriatic arthritis Sciatica Sensorimotor neuropathy Surgical History H/O foot surgery History of cataract surgery History of tubal ligation Family History Other Hypertension Lung disease Denies family history of Diabetes Dementia Hyperlipidemia Cancer Social History Smoking and tobacco status: current every day smoker Alcohol intake: never Marital status: Current occupational status: disabled Data Anesthesia Cardiac Studies: No Data to Display
[2019-12-11] MEDS: sodium chloride 0.9% 1,000 ML 30 ML IV (10:00)
[2019-12-11 11:56] VITALS: BP 98/74; PULSE 89; RESP 20; TEMP 36.4; O2SAT 98
[2019-12-11 12:29] VITALS: BP 113/76; PULSE 86; RESP 18; TEMP 36.6; O2SAT 94
[2019-12-14 07:25] LABS: H. Pylori / CLO Test Negative
== END 2019-12-11 12:43 | disposition home or self-care (01) ==
PROVIDERS: PCP Nurse Practitioner Family; Visit Provider Internal Medicine
PROC: 0DJ08ZZ Inspection of Upper Intestinal Tract, Via Natural or Artificial Opening Endoscopic (ICD-10-PCS; CPT 43235; principal; 2019-12-11 10:30)
PROC: 0DJD8ZZ Inspection of Lower Intestinal Tract, Via Natural or Artificial Opening Endoscopic (ICD-10-PCS; CPT 45378; 2019-12-11 10:30)
DX: K52.9 Noninfective gastroenteritis and colitis, unspecified (principal); D12.3 Benign neoplasm of transverse colon; K29.70 Gastritis, unspecified, without bleeding; I10 Essential (primary) hypertension; K21.9 Gastro-esophageal reflux disease without esophagitis; M19.90 Unspecified osteoarthritis, unspecified site
CPT/HCPCS: 12345; 43239; 45385; 82274; 83630; 87077; 87493; 87506; 88305; J2704; J7030

== ENCOUNTER → 2020-01-21 07:49 | Outpatient (BNVA) | payer MEDICAID, SELFPAY | PROVIDERS: PCP Nurse Practitioner Family; Visit Provider Psychiatry & Neurology Psychiatry | DX: F33.2 Major depressive disorder, recurrent severe without psychotic features (principal); F41.1 Generalized anxiety disorder | CPT/HCPCS: 99213 ==